=== PATIENT | male | born 1955 | race Caucasian/White ===

== ENCOUNTER 2019-06-11 10:20 | Inpatient (IN) | payer OTHER, MEDICAID ==
--- NOTE | 2019-06-11 10:55 | EDM.PDOC ---
ED HPI GENERAL MEDICAL PROBLEM - General Chief Complaint: Respiratory Problem Stated Complaint: SOB Time Seen by Provider: 06/11/19 10:25 Source of Information: Reports: Patient History Limitations: Reports: No Limitations - History of Present Illness Onset: Gradual Duration: Chronic, Getting Worse Severity: Severe Worsens with: Reports: Other (Exercise), Movement Associated Symptoms: Reports: Cough, Shortness of Breath, Weakness. 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 Treatments Lower Back Pain Score (Numeric/FACES): 2 - Related Data Allergies Allergy/AdvReac Type Severity Reaction Status Date / Time No Known Allergies Allergy Verified 06/11/19 10:35 Home Meds: Home Meds Aspirin [Aileen Chewable] 81 mg PO DAILY 03/13/13 [History] Hydrochlorothiazide 25 mg PO BID 03/13/13 [History] Metoprolol Tartrate [Lopressor] 100 mg PO BID 03/13/13 [History] Potassium Gluconate 595 mg PO DAILY 03/13/13 [History] Budesonide/Formoterol [Symbicort 80-4.5 MCG] 2 puff IH BID 06/11/19 [History] Doxazosin [Doxazosin Mesylate] 4 mg PO DAILY 06/11/19 [History] Magnesium 250 mg PO DAILY 06/11/19 [History] Ranitidine HCl [Ranitidine] 300 mg PO BEDTIME 06/11/19 [History] Past Medical History HEENT History: Reports: Impaired Vision Cardiovascular History: Reports: Hypertension Respiratory History: Reports: Sleep Apnea, SOB Musculoskeletal History: Reports: Back Pain, Chronic Endocrine/Metabolic History: Reports: Diabetes, Type II, Obesity/BMI 30+ - Past Surgical History Head Surgeries/Procedures: Reports: None HEENT Surgical History: Reports: None Cardiovascular Surgical History: Reports: None Respiratory Surgical History: Reports: None Endocrine Surgical History: Reports: None Musculoskeletal Surgical History: Reports: Other (See Below) Other Musculoskeletal Surgeries/Procedures:: right leg surgery Dermatological Surgical History: Reports: None Social & Family History - Tobacco Use Smoking Status *Q: Never Smoker Second Hand Smoke Exposure: No - Caffeine Use Caffeine Use: Reports: Coffee - Recreational Drug Use Recreational Drug Use: No ED ROS GENERAL - Review of Systems Review Of Systems: See Below Constitutional: Reports: Malaise, Weakness. Denies: Fever Respiratory: Reports: Shortness of Breath, Wheezing, Cough Cardiovascular: Denies: Chest Pain Endocrine: Reports: Fatigue GI/Abdominal: Reports: Distension. Denies: Abdominal Pain Musculoskeletal: Reports: Other (Marked swelling of both lower extremities especially at night) Skin: Denies: Cyanosis, Mottled Neurological: Denies: Confusion, Trouble Speaking ED EXAM, GENERAL - Physical Exam Exam: See Below Free Text/Narrative:: [place] obese gentleman is sitting on the edge of the exam table with oxygen in place. Legs are dangling down. He is basically a "pink puffer". Has difficulty finishing complete sentences Exam Limited By: No Limitations General Appearance: Alert, Moderate Distress Ears: Normal External Exam Nose: Normal Inspection Throat/Mouth: Normal Inspection Head: Atraumatic, Normocephalic. No: Facial Swelling Neck: Other (Neck is so obese I cannot determine jugular venous distention.) Respiratory/Chest: Chest Non-Tender, Respiratory Distress, Decreased Breath Sounds, Rales (Bilateral inspiratory rales), Wheezing, Prolonged Expiration Cardiovascular: Normal Peripheral Pulses Extremities: Other (Marked her extremity peripheral edema, pitting to the knees) EKG INTERPRETATION EKG Date: 06/11/19 Time: 11:30 Rhythm: NSR Rate (Beats/Min): 56 [place]: Normal P-Wave: Present QRS: Normal Course - Vital Signs Last Recorded V/S: Last Vital Signs Temp 36.7 C 06/11/19 10:45 Pulse 66 06/11/19 10:45 Resp 30 H 06/11/19 10:45 BP 151/71 H 06/11/19 10:45 Pulse Ox 93 L 06/11/19 10:45 - Orders/Labs/Meds Orders: Active Orders 24 hr Category Date Time Status EKG Documentation Completion [RC] ASDIRECTED Care 06/11/19 11:03 Active RT Aerosol Therapy [RC] ASDIRECTED Care 06/11/19 11:05 Active Sodium Chloride 0.9% [Saline Flush] Med 06/11/19 12:48 Active 10 ml FLUSH ASDIRECTED PRN Saline Lock Insert [OM.PC] Routine Oth 06/11/19 12:48 Ordered EKG 12 Lead [EK] Urgent Ther 06/11/19 11:03 Ordered Medication Orders Sodium Chloride (Saline Flush) 10 ml FLUSH ASDIRECTED PRN PRN Reason: Keep Vein Open Labs: Laboratory Tests 06/11/19 06/11/19 06/11/19 Range/Units 11:13 11:13 11:13 WBC 8.1 (4.5-11.0) K/uL RBC 5.71 (4.30-5.90) M/uL Hgb 16.4 H (12.0-15.0) g/dL Hct 52.9 (40.0-54.0) % MCV 93 (80-98) fL MCH 29 (27-31) pg MCHC 31 L (32-36) % Plt Count 140 L (150-400) K/uL Sodium 139 L (140-148) mmol/L Potassium 3.7 (3.6-5.2) mmol/L Chloride 99 L (100-108) mmol/L Carbon Dioxide 36 H (21-32) mmol/L Anion Gap 7.7 (5.0-14.0) mmol/L BUN 13 (7-18) mg/dL Creatinine 1.0 (0.8-1.3) mg/dL Est Cr Clr Drug Dosing 75.05 mL/min Estimated GFR (MDRD) > 60 (>60) Glucose 202 H (74-106) mg/dL Lactic Acid (0.4-2.0) mmol/L Calcium 9.0 (8.5-10.1) mg/dL Total Bilirubin 2.1 H (0.2-1.0) mg/dL AST 19 (15-37) U/L ALT 25 (12-78) U/L Alkaline Phosphatase 96 (46-116) U/L Troponin I < 0.017 (0.000-0.056) ng/mL NT-Pro-B Natriuret Pep 273 H (5-125) pg/mL Total Protein 6.7 (6.4-8.2) g/dL Albumin 3.5 (3.4-5.0) g/dL Globulin 3.2 (2.3-3.5) g/dL Albumin/Globulin Ratio 1.1 L (1.2-2.2) Urine Color (YELLOW) Urine Appearance (CLEAR) Urine pH (5.0-8.0) Ur Specific [place] (1.008-1.030) Urine Protein (NEGATIVE) mg/dL Urine Glucose (UA) (NEGATIVE) mg/dL Urine Ketones (NEGATIVE) mg/dL Urine Occult Blood (NEGATIVE) Urine Nitrite (NEGATIVE) Urine Bilirubin (NEGATIVE) Urine Urobilinogen (0.2-1.0) EU/dL Ur Leukocyte Esterase (NEGATIVE) Urine RBC (0-5) Urine WBC (0-5) Ur Epithelial Cells Amorphous Sediment Urine Bacteria Urine Mucus 06/11/19 06/11/19 Range/Units 11:13 11:43 WBC (4.5-11.0) K/uL RBC (4.30-5.90) M/uL Hgb (12.0-15.0) g/dL Hct (40.0-54.0) % MCV (80-98) fL MCH (27-31) pg MCHC (32-36) % Plt Count (150-400) K/uL Sodium (140-148) mmol/L Potassium (3.6-5.2) mmol/L Chloride (100-108) mmol/L Carbon Dioxide (21-32) mmol/L Anion Gap (5.0-14.0) mmol/L BUN (7-18) mg/dL Creatinine (0.8-1.3) mg/dL Est Cr Clr Drug Dosing mL/min Estimated GFR (MDRD) (>60) Glucose (74-106) mg/dL Lactic Acid 1.4 (0.4-2.0) mmol/L Calcium (8.5-10.1) mg/dL Total Bilirubin (0.2-1.0) mg/dL AST (15-37) U/L ALT (12-78) U/L Alkaline Phosphatase (46-116) U/L Troponin I (0.000-0.056) ng/mL NT-Pro-B Natriuret Pep (5-125) pg/mL Total Protein (6.4-8.2) g/dL Albumin (3.4-5.0) g/dL Globulin (2.3-3.5) g/dL Albumin/Globulin Ratio (1.2-2.2) Urine Color Yellow (YELLOW) Urine Appearance Clear (CLEAR) Urine pH 7.0 (5.0-8.0) Ur Specific [place] 1.020 (1.008-1.030) Urine Protein Negative (NEGATIVE) mg/dL Urine Glucose (UA) Negative (NEGATIVE) mg/dL Urine Ketones Negative (NEGATIVE) mg/dL Urine Occult Blood Negative (NEGATIVE) Urine Nitrite Negative (NEGATIVE) Urine Bilirubin Negative (NEGATIVE) Urine Urobilinogen 2.0 H (0.2-1.0) EU/dL Ur Leukocyte Esterase Negative (NEGATIVE) Urine RBC 0-5 (0-5) Urine WBC Not seen (0-5) Ur Epithelial Cells Not seen Amorphous Sediment Moderate Urine Bacteria Not seen Urine Mucus Not seen Meds: Medications Generic Name Dose Route Start Last Admin Trade Name Freq PRN Reason Stop Dose Admin Sodium Chloride 10 ml 06/11/19 12:48 Saline Flush FLUSH ASDIRECTED PRN Keep Vein Open Discontinued Medications Generic Name Dose Route Start Last Admin Trade Name Freq PRN Reason Stop Dose Admin Albuterol/Ipratropium 3 ml 06/11/19 11:05 06/11/19 11:09 Duoneb 3.0-0.5 Mg/3 Ml NEB 06/11/19 11:06 3 ml ONETIME ONE Administration Furosemide 40 mg 06/11/19 12:49 Lasix IVPUSH 06/11/19 12:50 ONETIME ONE Departure - Departure Time of Disposition: 13:02 (Suzie the patient with hospitalist and the patient will be admitted for treatment of congestive heart failure) Disposition: Admitted As Inpatient 68 Clinical Impression: Congestive heart failure - Discharge Information Instructions: Heart Failure, [id number] Referrals: Richie Quintana MD [Primary Care Provider] - Forms: ED Department Discharge Sepsis Event Note - Evaluation Sepsis Screening Result: No Definite Risk - Focused Exam Vital Signs: Vital Signs Temp Pulse Resp BP Pulse Ox 06/11/19 10:45 36.7 C 66 30 H 151/71 H 93 L 06/11/19 10:41 93 L 06/11/19 10:39 36.7 C 66 30 H 151/71 H 80 L Date Exam was Performed: 06/11/19 Time Exam was Performed: 13:02 - My Orders Last 24 Hours: My Active Orders 06/11/19 11:03 EKG Documentation Completion [RC] ASDIRECTED EKG 12 Lead [EK] Urgent 06/11/19 11:05 RT Aerosol Therapy [RC] ASDIRECTED 06/11/19 12:48 Sodium Chloride 0.9% [Saline Flush] 10 ml FLUSH ASDIRECTED PRN Saline Lock Insert [OM.PC] Routine - Assessment/Plan Last 24 Hours: My Active Orders 06/11/19 11:03 EKG Documentation Completion [RC] ASDIRECTED EKG 12 Lead [EK] Urgent 06/11/19 11:05 RT Aerosol Therapy [RC] ASDIRECTED 06/11/19 12:48 Sodium Chloride 0.9% [Saline Flush] 10 ml FLUSH ASDIRECTED PRN Saline Lock Insert [OM.PC] Routine
[2019-06-11] MEDS ORDERED: Albuterol/Ipratropium 3.0-0.5 MG/3 ML Neb Soln NEB ONE (11:05)
--- NOTE | 2019-06-11 12:14 | CRLCR ---
Indication: Shortness of breath Technique: Chest 2 views Comparison: None Findings: Cardiovascular and mediastinum: Borderline cardiomegaly. Central pulmonary vasculature is congested. Lungs and pleural spaces: Possible perihilar infiltrates. This may be exaggerated by patient rotation. Remainder of the lungs and pleural spaces clear. No pneumothorax. Bones and soft tissues: No significant findings. Impression: Suggestion of congestive heart failure with perihilar edema. Dictated by Anthony Uriarte MD @ 06/11/2019 12:13:16 PM Dictated by: Anthony Uriarte MD @ 06/11/2019 12:13:37 (Electronically Signed)
[2019-06-11] MEDS ORDERED: Sodium Chloride 0.9% 10 ML Syringe FLUSH PRN ×2 (12:48→15:19)
[2019-06-11] MEDS ORDERED: Furosemide 40 MG/4 ML VIAL IVPUSH ONE ×2 (12:49→20:00)
--- NOTE | 2019-06-11 13:08 | PCM.HP.2 ---
H&P History of Present Illness - General Date of Service: 06/11/19 Admit Problem/Dx: Admission Diagnosis/Problem Admission Diagnosis/Problem CHF, Congestive heart failure Source of Information: Patient, Provider, RN Notes Reviewed History Limitations: Reports: No Limitations - History of Present Illness Initial Comments - Free Text/Narative: Mr. Buck is a 63-year-old gentleman who was admitted through the emergency department with weakness, shortness of breath, and hypoxia, secondary to congestive heart failure. He does have a known history of underlying COPD but denies recent symptoms of exacerbation. He denies any previous history of congestive heart failure. He reports that his shortness of breath and peripheral edema have been developing slowly over the past several months but have become significantly worse in the past few weeks. He has been short of breath with minimal exertion, denies PND and orthopnea. Denies recent symptoms of chest pain or pressure. Lower Back Pain Score (Numeric/FACES): 2 - Related Data Allergies/Adverse Reactions: Allergies Allergy/AdvReac Type Severity Reaction Status Date / Time No Known Allergies Allergy Verified 06/11/19 10:35 Home Medications: Home Meds Aspirin [Aileen Chewable] 81 mg PO DAILY 03/13/13 [History] Hydrochlorothiazide 25 mg PO BID 03/13/13 [History] Metoprolol Tartrate [Lopressor] 100 mg PO BID 03/13/13 [History] Potassium Gluconate 595 mg PO DAILY 03/13/13 [History] Budesonide/Formoterol [Symbicort 80-4.5 MCG] 2 puff IH BID 06/11/19 [History] Doxazosin [Doxazosin Mesylate] 4 mg PO DAILY 06/11/19 [History] Magnesium 250 mg PO DAILY 06/11/19 [History] Ranitidine HCl [Ranitidine] 300 mg PO BEDTIME 06/11/19 [History] Past Medical History HEENT History: Reports: Impaired Vision Cardiovascular History: Reports: Hypertension Respiratory History: Reports: Sleep Apnea, SOB Musculoskeletal History: Reports: Back Pain, Chronic Endocrine/Metabolic History: Reports: Diabetes, Type II, Obesity/BMI 30+ - Past Surgical History Head Surgeries/Procedures: Reports: None HEENT Surgical History: Reports: None Cardiovascular Surgical History: Reports: None Respiratory Surgical History: Reports: None Endocrine Surgical History: Reports: None Musculoskeletal Surgical History: Reports: Other (See Below) Other Musculoskeletal Surgeries/Procedures:: right leg surgery Dermatological Surgical History: Reports: None Social & Family History - Tobacco Use Smoking Status *Q: Never Smoker Second Hand Smoke Exposure: No - Caffeine Use Caffeine Use: Reports: Coffee - Recreational Drug Use Recreational Drug Use: No H&P Review of Systems - Review of Systems: Review Of Systems: See Below General: Reports: Malaise, Weakness. Denies: Fever, Chills HEENT: Reports: No Symptoms Pulmonary: Reports: Shortness of Breath. Denies: Wheezing, Pleuritic Chest Pain , Cough, Sputum, Hemoptysis Cardiovascular: Reports: Dyspnea on Exertion, Edema. Denies: Chest Pain, Palpitations, Orthopnea, PND, Lightheadedness Gastrointestinal: Reports: No Symptoms Genitourinary: Reports: No Symptoms Musculoskeletal: Reports: No Symptoms Skin: Reports: No Symptoms Psychiatric: Reports: No Symptoms Neurological: Reports: No Symptoms Hematologic/Lymphatic: Reports: No Symptoms Immunologic: Reports: No Symptoms Exam - Exam Exam: See Below - Vital Signs Vital Signs: Last Vital Signs Temp 98.1 F 06/11/19 10:45 Pulse 66 06/11/19 10:45 Resp 30 H 06/11/19 10:45 BP 151/71 H 06/11/19 10:45 Pulse Ox 93 L 06/11/19 10:45 Weight: 338 lb - Exam Quality Assessment: Supplemental Oxygen, DVT Prophylaxis General: Alert, Oriented, Cooperative, Mild Distress HEENT: Conjunctiva Clear, Hearing Intact, Mucosa Moist & [place], Normal Nasal Septum, Posterior Pharynx Clear, Pupils Equal Neck: Supple, Trachea Midline, +2 Carotid Pulse wo Bruit Lungs: Decreased Breath Sounds. No: Rales, Rhonchi, Rub, Wheezing Cardiovascular: Regular Rate, Regular Rhythm, Normal S1, Normal S2, Systolic Murmur. No: Diastolic Murmur GI/Abdominal Exam: Soft, Non-Tender, No Organomegaly, No Distention Back Exam: Normal Inspection, Full Range of Motion Extremities: Non-Tender, Pedal Edema Skin: Warm, Dry, Intact Neurological: Cranial Nerves Intact, Strength Equal Bilateral, Normal Speech, Normal Tone, Sensation Intact. No: Focal Deficit Neuro Extensive - Mental Status: Alert, Oriented x3, Normal Mood/Affect, Normal Cognition, Memory Intact - Patient Data Lab Results Last 24 hrs: Laboratory Results - last 24 hr 06/11/19 06/11/19 06/11/19 Range/Units 11:13 11:13 11:13 WBC 8.1 (4.5-11.0) K/uL RBC 5.71 (4.30-5.90) M/uL Hgb 16.4 H (12.0-15.0) g/dL Hct 52.9 (40.0-54.0) % MCV 93 (80-98) fL MCH 29 (27-31) pg MCHC 31 L (32-36) % Plt Count 140 L (150-400) K/uL Sodium 139 L (140-148) mmol/L Potassium 3.7 (3.6-5.2) mmol/L Chloride 99 L (100-108) mmol/L Carbon Dioxide 36 H (21-32) mmol/L Anion Gap 7.7 (5.0-14.0) mmol/L BUN 13 (7-18) mg/dL Creatinine 1.0 (0.8-1.3) mg/dL Est Cr Clr Drug Dosing 75.05 mL/min Estimated GFR (MDRD) > 60 (>60) Glucose 202 H (74-106) mg/dL Lactic Acid (0.4-2.0) mmol/L Calcium 9.0 (8.5-10.1) mg/dL Total Bilirubin 2.1 H (0.2-1.0) mg/dL AST 19 (15-37) U/L ALT 25 (12-78) U/L Alkaline Phosphatase 96 (46-116) U/L Troponin I < 0.017 (0.000-0.056) ng/mL NT-Pro-B Natriuret Pep 273 H (5-125) pg/mL Total Protein 6.7 (6.4-8.2) g/dL Albumin 3.5 (3.4-5.0) g/dL Globulin 3.2 (2.3-3.5) g/dL Albumin/Globulin Ratio 1.1 L (1.2-2.2) Urine Color (YELLOW) Urine Appearance (CLEAR) Urine pH (5.0-8.0) Ur Specific [place] (1.008-1.030) Urine Protein (NEGATIVE) mg/dL Urine Glucose (UA) (NEGATIVE) mg/dL Urine Ketones (NEGATIVE) mg/dL Urine Occult Blood (NEGATIVE) Urine Nitrite (NEGATIVE) Urine Bilirubin (NEGATIVE) Urine Urobilinogen (0.2-1.0) EU/dL Ur Leukocyte Esterase (NEGATIVE) Urine RBC (0-5) Urine WBC (0-5) Ur Epithelial Cells Amorphous Sediment Urine Bacteria Urine Mucus 06/11/19 06/11/19 Range/Units 11:13 11:43 WBC (4.5-11.0) K/uL RBC (4.30-5.90) M/uL Hgb (12.0-15.0) g/dL Hct (40.0-54.0) % MCV (80-98) fL MCH (27-31) pg MCHC (32-36) % Plt Count (150-400) K/uL Sodium (140-148) mmol/L Potassium (3.6-5.2) mmol/L Chloride (100-108) mmol/L Carbon Dioxide (21-32) mmol/L Anion Gap (5.0-14.0) mmol/L BUN (7-18) mg/dL Creatinine (0.8-1.3) mg/dL Est Cr Clr Drug Dosing mL/min Estimated GFR (MDRD) (>60) Glucose (74-106) mg/dL Lactic Acid 1.4 (0.4-2.0) mmol/L Calcium (8.5-10.1) mg/dL Total Bilirubin (0.2-1.0) mg/dL AST (15-37) U/L ALT (12-78) U/L Alkaline Phosphatase (46-116) U/L Troponin I (0.000-0.056) ng/mL NT-Pro-B Natriuret Pep (5-125) pg/mL Total Protein (6.4-8.2) g/dL Albumin (3.4-5.0) g/dL Globulin (2.3-3.5) g/dL Albumin/Globulin Ratio (1.2-2.2) Urine Color Yellow (YELLOW) Urine Appearance Clear (CLEAR) Urine pH 7.0 (5.0-8.0) Ur Specific [place] 1.020 (1.008-1.030) Urine Protein Negative (NEGATIVE) mg/dL Urine Glucose (UA) Negative (NEGATIVE) mg/dL Urine Ketones Negative (NEGATIVE) mg/dL Urine Occult Blood Negative (NEGATIVE) Urine Nitrite Negative (NEGATIVE) Urine Bilirubin Negative (NEGATIVE) Urine Urobilinogen 2.0 H (0.2-1.0) EU/dL Ur Leukocyte Esterase Negative (NEGATIVE) Urine RBC 0-5 (0-5) Urine WBC Not seen (0-5) Ur Epithelial Cells Not seen Amorphous Sediment Moderate Urine Bacteria Not seen Urine Mucus Not seen Result Diagrams: 06/11/19 11:13 06/11/19 11:13 Sepsis Event Note - Evaluation Sepsis Screening Result: No Definite Risk - Focused Exam Vital Signs: Vital Signs Temp Pulse Resp BP Pulse Ox 06/11/19 10:45 98.1 F 66 30 H 151/71 H 93 L 06/11/19 10:41 93 L 06/11/19 10:39 98.1 F 66 30 H 151/71 H 80 L Date Exam was Performed: 06/11/19 Time Exam was Performed: 13:53 *Q Meaningful Use (ADM) - VTE Risk Assess *Q Each Risk Factor Represents 1 Point: Swollen Legs, Current, Obesity ( BMI > 25 kg/m2), Congestive heart failure (CHF), Abnormal Pulmonary Function (COPD) Total Score 1 Point Risk Factors: 4 Each Risk Factor Represents 2 Points: Age 60 - 74 Years Total Score 2 Point Risk Factors: 2 Each Risk Factor Represents 3 Points: None Total Score 3 Point Risk Factors: 0 Each Risk Factor Represents 5 Points: None Total Score 5 Point Risk Factors: 0 Venous Thromboembolism Risk Factor Score *Q: 6 Problem List Initiated/Reviewed/Updated: Yes Orders Last 24hrs: Active Orders 24 hr Category Date Time Status Patient Status Manage Transfer [TRANSFER] Routine ADT 06/11/19 13:03 Ordered EKG Documentation Completion [RC] ASDIRECTED Care 06/11/19 11:03 Active RT Aerosol Therapy [RC] ASDIRECTED Care 06/11/19 11:05 Active Sodium Chloride 0.9% [Saline Flush] Med 06/11/19 12:48 Active 10 ml FLUSH ASDIRECTED PRN Saline Lock Insert [OM.PC] Routine Oth 06/11/19 12:48 Ordered Resuscitation Status Routine Resus Stat 06/11/19 13:05 Ordered EKG 12 Lead [EK] Urgent Ther 06/11/19 11:03 Ordered Medication Orders Sodium Chloride (Saline Flush) 10 ml FLUSH ASDIRECTED PRN PRN Reason: Keep Vein Open Assessment/Plan Comment:: ASSESSMENT AND PLAN CONGESTIVE HEART FAILURE-with fluid overload. Significant shortness of breath with hypoxia and peripheral edema. Evidence of congestive heart failure noted on chest x-ray. -2 g sodium diet -Furosemide 40 mg given in emergency department -Furosemide 40 mg IV later this evening -Echocardiogram to assess left ventricular systolic and diastolic function as well as valvular status -Reassess in a.m. COPD-no evidence of acute exacerbation or underlying infection -Continue outpatient medical therapy -Duo nebs as needed TYPE 2 DIABETES MELLITUS-controlled with diet -4 times daily glucometers -Low-dose sliding scale NovoLog MAINTENANCE ISSUES -DVT prophylaxis; Lovenox 40 mg subcu daily -GI prophylaxis; continue outpatient H2 mallory therapy -Maciel catheter; not indicated -Nutrition; 2 g sodium diet -Nicotine dependence; not indicated CODE STATUS-FULL CODE ADMISSION STATUS-patient will be admitted to inpatient status, expect at least a 2 night hospital stay for evaluation and management of problems as outlined above. At the time of this admission I do not reasonably expected evaluation and management of this problem will require more than a 96 hour hospital stay. DISPOSITION-anticipate discharge to home after the hospital stay. PRIMARY CARE PROVIDER-Dr. Quintana - Mortality Measure Prognosis:: Good
[2019-06-11] MEDS ORDERED: Glucose Gel 15 GM in 37.5 GM Tube PO PRN (15:19)
[2019-06-11] MEDS ORDERED: Polyethylene Glycol 3350 Powder 17 GM Packet PO PRN (15:19)
[2019-06-11] MEDS ORDERED: Ondansetron 4 MG/2 ML SDV IV PRN (15:19)
[2019-06-11] MEDS ORDERED: 50% Dextrose in Water 50 ML Syringe IV PRN (15:19)
[2019-06-11] MEDS: Insulin Lispro 100 Unit/ML 3 ML KwikPen SUBCUT SCH ×2 (17:13→21:30)
[2019-06-11] MEDS: Enoxaparin 40 MG/0.4 ML Syringe SUBCUT SCH (17:13)
[2019-06-11] MEDS: Metoprolol Tartrate 50 MG Tab PO SCH (21:29)
[2019-06-11] MEDS: Famotidine 20 MG Tab PO SCH (21:29)
[2019-06-11] MEDS: Fluticasone-Salmeterol 113-14 MCG Powder Inhalant INH SCH (21:29)
[2019-06-12] MEDS: Acetaminophen 325 MG Tab PO PRN ×3 (00:07→20:11)
[2019-06-12] MEDS: Fluticasone-Salmeterol 113-14 MCG Powder Inhalant INH SCH ×2 (07:45→21:19)
[2019-06-12] MEDS: Insulin Lispro 100 Unit/ML 3 ML KwikPen SUBCUT SCH ×4 (07:46→21:14)
[2019-06-12] MEDS ORDERED: Furosemide 40 MG/4 ML VIAL IVPUSH ONE ×2 (08:50→19:00)
[2019-06-12] MEDS ORDERED: Potassium Chloride 20 MEQ Tab.ER PO ONE ×2 (09:00→17:00)
[2019-06-12] MEDS: Doxazosin 4 MG Tab PO SCH (09:57)
[2019-06-12] MEDS: Potassium Chloride 10 MEQ Cap.ER PO SCH (09:57)
[2019-06-12] MEDS: Metoprolol Tartrate 50 MG Tab PO SCH ×2 (09:58→21:21)
[2019-06-12] MEDS: Magnesium Oxide 400 MG Tab PO SCH (09:58)
[2019-06-12] MEDS: Aspirin 81 MG Tab.Chew PO SCH (09:58)
--- NOTE | 2019-06-12 13:39 | PCM.PN ---
- General Info Date of Service: 06/12/19 Subjective Update: Mr. Buck has improved since admission yesterday with less shortness of breath and improvement in peripheral edema. Continues to require supplemental oxygen because of hypoxia and decreased oxygen saturation. Functional Status: Reports: Tolerating Diet, Ambulating, Urinating - Review of Systems General: Reports: Weakness. Denies: Fever, Chills Pulmonary: Reports: Shortness of Breath. Denies: Pleuritic Chest Pain, Cough, Sputum, Hemoptysis, Wheezing Cardiovascular: Reports: Dyspnea on Exertion, Edema. Denies: Chest Pain, Palpitations, Orthopnea, PND, Lightheadedness Gastrointestinal: Reports: No Symptoms - Patient Data Vitals - Most Recent: Last Vital Signs Temp 97 F 06/12/19 11:42 Pulse 51 L 06/12/19 11:42 Resp 16 06/12/19 11:42 BP 116/73 06/12/19 11:42 Pulse Ox 92 L 06/12/19 11:42 Weight - Most Recent: 329 lb 9.6 oz I&O - Last 24 Hours: Intake & Output 06/11/19 06/12/19 06/12/19 22:59 06:59 14:59 Intake Total 300 Output Total 1375 1000 Balance -1375 300 -1000 Lab Results Last 24 Hours: Laboratory Results - last 24 hr 06/12/19 06/12/19 Range/Units 05:30 05:30 WBC 7.7 (4.5-11.0) K/uL RBC 5.38 (4.30-5.90) M/uL Hgb 15.6 H (12.0-15.0) g/dL Hct 50.5 (40.0-54.0) % MCV 94 (80-98) fL MCH 29 (27-31) pg MCHC 31 L (32-36) % Plt Count 139 L (150-400) K/uL Neut % (Auto) 74 H (36-66) % Lymph % (Auto) 12 L (24-44) % Power % (Auto) 10 H (2-6) % Eos % (Auto) 3 (2-4) % Baso % (Auto) 0 (0-1) % Sodium 142 (140-148) mmol/L Potassium 3.5 L (3.6-5.2) mmol/L Chloride 101 (100-108) mmol/L Carbon Dioxide 40 H (21-32) mmol/L Anion Gap 4.5 L (5.0-14.0) mmol/L BUN 13 (7-18) mg/dL Creatinine 1.0 (0.8-1.3) mg/dL Est Cr Clr Drug Dosing 75.05 mL/min Estimated GFR (MDRD) > 60 (>60) Glucose 119 H (74-106) mg/dL Calcium 8.4 L (8.5-10.1) mg/dL Magnesium 2.0 (1.8-2.4) mg/dL Med Orders - Current: Current Medications Acetaminophen (Tylenol) 650 mg PO Q4H PRN PRN Reason: Pain (Mild 1-3)/fever Last Admin: 06/12/19 00:07 Dose: 650 mg Aspirin (Aspirin) 81 mg PO DAILY [facility] Last Admin: 06/12/19 09:58 Dose: 81 mg Dextrose (Glutose 15) 15 gm PO ONETIME PRN PRN Reason: Hypoglycemia Dextrose/Water (Dextrose 50% In Water) 50 ml IV ONETIME PRN PRN Reason: Hypoglycemia Doxazosin Mesylate (Cardura) 4 mg PO DAILY [facility] Last Admin: 06/12/19 09:57 Dose: 4 mg Enoxaparin Sodium (Lovenox) 40 mg SUBCUT Q24H [facility] Last Admin: 06/11/19 17:13 Dose: 40 mg Famotidine (Pepcid) 40 mg PO BEDTIME [facility] Last Admin: 06/11/19 21:29 Dose: 40 mg Furosemide (Lasix) 40 mg IVPUSH NOW ONE Stop: 06/12/19 19:01 Insulin Human Lispro (Humalog) 0 unit SUBCUT QIDACANDBED [facility]; Protocol Last Admin: 06/12/19 12:22 Dose: 1 unit Magnesium Oxide (Magnesium Oxide) 400 mg PO DAILY [facility] Last Admin: 06/12/19 09:58 Dose: 400 mg Metoprolol Tartrate (Lopressor) 100 mg PO BID [facility] Last Admin: 06/12/19 09:58 Dose: 100 mg Ondansetron HCl (Zofran) 4 mg IV Q4H PRN PRN Reason: Nausea/Vomiting Polyethylene Glycol (Miralax) 17 gm PO DAILY PRN PRN Reason: Constipation Potassium Chloride (Potassium Chloride) 10 meq PO DAILY [facility] Last Admin: 06/12/19 09:57 Dose: 10 meq Potassium Chloride (Klor-Con M20) 40 meq PO ONETIME ONE Stop: 06/12/19 17:01 Fluticasone/Salmeterol (Fluticasone-Salmeterol 113-14 Mcg Powder Inh) 1 puff INH BIDRT [place] Last Admin: 06/12/19 07:45 Dose: 1 puff Sodium Chloride (Saline Flush) 10 ml FLUSH ASDIRECTED PRN PRN Reason: Keep Vein Open Discontinued Medications Albuterol/Ipratropium (Duoneb 3.0-0.5 Mg/3 Ml) 3 ml NEB ONETIME ONE Stop: 06/11/19 11:06 Last Admin: 06/11/19 11:09 Dose: 3 ml Furosemide (Lasix) 40 mg IVPUSH ONETIME ONE Stop: 06/11/19 12:50 Last Admin: 06/11/19 13:19 Dose: 40 mg Furosemide (Lasix) 40 mg IVPUSH NOW ONE Stop: 06/11/19 20:01 Last Admin: 06/11/19 19:44 Dose: 40 mg Furosemide (Lasix) 40 mg IVPUSH NOW ONE Stop: 06/12/19 08:51 Last Admin: 06/12/19 10:01 Dose: 40 mg Potassium Chloride (Klor-Con M20) 40 meq PO ONETIME ONE Stop: 06/12/19 09:01 Last Admin: 06/12/19 09:56 Dose: 40 meq Sodium Chloride (Saline Flush) 10 ml FLUSH ASDIRECTED PRN PRN Reason: Keep Vein Open Last Admin: 06/11/19 13:19 Dose: 10 ml - Exam Quality Assessment: Supplemental Oxygen, DVT Prophylaxis General: Alert, Oriented, Mild Distress Lungs: Decreased Breath Sounds. No: Rales, Rhonchi, Wheezing Cardiovascular: Regular Rate, Regular Rhythm, No Murmurs GI/Abdominal Exam: Soft, Non-Tender, No Organomegaly, No Distention Extremities: Non-Tender, Pedal Edema Sepsis Event Note - Evaluation Sepsis Screening Result: No Definite Risk - Focused Exam Vital Signs: Vital Signs Temp Pulse Pulse Resp BP BP Pulse Ox 06/12/19 11:42 97 F 51 L 16 116/73 92 L 06/12/19 09:58 58 L 127/75 06/12/19 09:57 127/75 06/12/19 09:00 90 L 06/12/19 07:57 58 L 20 127/75 92 L 06/12/19 03:00 97.6 F 58 L 20 121/71 91 L Date Exam was Performed: 06/12/19 Time Exam was Performed: 13:36 - Problem List Review Problem List Initiated/Reviewed/Updated: Yes - My Orders Last 24 Hours: My Active Orders 06/11/19 13:05 Resuscitation Status Routine 06/11/19 15:19 Patient Status [ADT] Routine Ambulate [RC] QID Blood Glucose Check, Bedside [RC] QIDACANDBED Cardiac Monitoring [RC] .As Directed Diabetes Education [RC] Click to Edit Height and Weight [RC] 0500 Intake and Output [RC] QSHIFT Notify Provider Vital Signs [RC] ASDIRECTED Notify Provider [RC] PRN Oxygen Therapy [RC] PRN Pulse Oximetry [RC] CONTINUOUS Up With Assistance [RC] ASDIRECTED Up to Chair [RC] QID VTE/DVT Education [RC] Per Unit Routine Vital Signs [RC] Q4H Echo Comp wo Cont [US] Stat Acetaminophen [Tylenol] 650 mg PO Q4H PRN Dextrose 50% in Water 50 ml IV ONETIME PRN Dextrose [Glutose 15] 15 gm PO ONETIME PRN Ondansetron [Zofran] 4 mg IV Q4H PRN Sodium Chloride 0.9% [Saline Flush] 10 ml FLUSH ASDIRECTED PRN polyethylene glycoL 3350 [MiraLAX] 17 gm PO DAILY PRN Saline Lock Insert [OM.PC] Routine 06/11/19 16:00 Enoxaparin [Lovenox] 40 mg SUBCUT Q24H 06/11/19 17:00 Insulin Lispro [HumaLOG] See Protocol SUBCUT QIDACANDBED 06/11/19 21:00 Famotidine [Pepcid] 40 mg PO BEDTIME Fluticasone/Salmeterol [Fluticasone-Salmeterol 113-14 MCG Powder Inh] 1 puff INH BIDRT Metoprolol Tartrate [Lopressor] 100 mg PO BID 06/12/19 09:00 Aspirin 81 mg PO DAILY Doxazosin [Cardura] 4 mg PO DAILY Magnesium Oxide 400 mg PO DAILY Potassium Chloride 10 meq PO DAILY 06/12/19 16:30 GLUCOSE POC LAB TO COLLECT [POC] QIDACANDBED 06/12/19 17:00 Potassium Chloride [Klor-Con M20] 40 meq PO ONETIME ONE 06/12/19 19:00 Furosemide [Lasix] 40 mg IVPUSH NOW ONE 06/12/19 21:00 GLUCOSE POC LAB TO COLLECT [POC] QIDACANDBED 06/13/19 05:00 BASIC METABOLIC PANEL,BMP [CHEM] Timed 06/13/19 07:30 GLUCOSE POC LAB TO COLLECT [POC] QIDACANDBED 06/13/19 11:30 GLUCOSE POC LAB TO COLLECT [POC] QIDACANDBED 06/13/19 16:30 GLUCOSE POC LAB TO COLLECT [POC] QIDACANDBED 06/13/19 21:00 GLUCOSE POC LAB TO COLLECT [POC] QIDACANDBED 06/14/19 07:30 GLUCOSE POC LAB TO COLLECT [POC] QIDACANDBED 06/14/19 11:30 GLUCOSE POC LAB TO COLLECT [POC] QIDACANDBED 06/14/19 16:30 GLUCOSE POC LAB TO COLLECT [POC] QIDACANDBED 06/14/19 21:00 GLUCOSE POC LAB TO COLLECT [POC] QIDACANDBED 06/15/19 07:30 GLUCOSE POC LAB TO COLLECT [POC] QIDACANDBED 06/15/19 11:30 GLUCOSE POC LAB TO COLLECT [POC] QIDACANDBED 06/15/19 16:30 GLUCOSE POC LAB TO COLLECT [POC] QIDACANDBED 06/15/19 21:00 GLUCOSE POC LAB TO COLLECT [POC] QIDACANDBED 06/16/19 07:30 GLUCOSE POC LAB TO COLLECT [POC] QIDACANDBED 06/16/19 11:30 GLUCOSE POC LAB TO COLLECT [POC] QIDACANDBED - Plan Plan:: ASSESSMENT AND PLAN CONGESTIVE HEART FAILURE-with fluid overload. Significant shortness of breath with hypoxia and peripheral edema. Evidence of congestive heart failure noted on chest x-ray. Good diuresis thus far since admission with less shortness of breath and edema -2 g sodium diet -Furosemide 40 mg IV twice today, reassess in a.m. -Echocardiogram report pending COPD-no evidence of acute exacerbation or underlying infection -Continue outpatient medical therapy -Duo nebs as needed TYPE 2 DIABETES MELLITUS-controlled with diet -4 times daily glucometers -Low-dose sliding scale NovoLog MAINTENANCE ISSUES -DVT prophylaxis; Lovenox 40 mg subcu daily -GI prophylaxis; continue outpatient H2 mallory therapy -Maciel catheter; not indicated -Nutrition; 2 g sodium diet -Nicotine dependence; not indicated CODE STATUS-FULL CODE ADMISSION STATUS-patient will be admitted to inpatient status, expect at least a 2 night hospital stay for evaluation and management of problems as outlined above. At the time of this admission I do not reasonably expected evaluation and management of this problem will require more than a 96 hour hospital stay. DISPOSITION-anticipate discharge to home after the hospital stay. PRIMARY CARE PROVIDER-Dr. Quintana
[2019-06-12] MEDS: Enoxaparin 40 MG/0.4 ML Syringe SUBCUT SCH (16:37)
[2019-06-12] MEDS: Famotidine 20 MG Tab PO SCH (21:21)
[2019-06-13] MEDS: Acetaminophen 325 MG Tab PO PRN ×3 (05:16→21:05)
[2019-06-13] MEDS: Insulin Lispro 100 Unit/ML 3 ML KwikPen SUBCUT SCH ×4 (07:47→21:16)
[2019-06-13] MEDS: Potassium Chloride 10 MEQ Cap.ER PO SCH (08:20)
[2019-06-13] MEDS: Metoprolol Tartrate 50 MG Tab PO SCH ×2 (08:20→21:18)
[2019-06-13] MEDS: Magnesium Oxide 400 MG Tab PO SCH (08:20)
[2019-06-13] MEDS: Aspirin 81 MG Tab.Chew PO SCH (08:20)
[2019-06-13] MEDS: Doxazosin 4 MG Tab PO SCH (08:20)
[2019-06-13] MEDS: Fluticasone-Salmeterol 113-14 MCG Powder Inhalant INH SCH ×2 (11:28→21:17)
[2019-06-13] MEDS ORDERED: Furosemide 40 MG/4 ML VIAL IVPUSH ONE (14:00)
--- NOTE | 2019-06-13 14:09 | PCM.PN ---
- General Info Date of Service: 06/13/19 Subjective Update: Mr. Buck has noted further improvement in symptoms since yesterday, less shortness of breath with activity and decrease in peripheral edema. He remains hypoxic and continues to require up to 3 L/min via nasal cannula to maintain adequate oxygenation. Likely that some of this is chronic related to his underlying COPD, obesity related hypoventilation, and congestive heart failure. Functional Status: Reports: Pain Controlled, Tolerating Diet, Ambulating, Urinating - Review of Systems General: Reports: Weakness. Denies: Fever, Chills Pulmonary: Reports: Shortness of Breath. Denies: Pleuritic Chest Pain, Cough, Sputum, Hemoptysis, Wheezing Cardiovascular: Reports: Dyspnea on Exertion, Edema. Denies: Chest Pain, Palpitations, Orthopnea, PND, Lightheadedness Gastrointestinal: Reports: No Symptoms - Patient Data Vitals - Most Recent: Last Vital Signs Temp 97.6 F 06/13/19 10:44 Pulse 53 L 06/13/19 10:44 Resp 16 06/13/19 10:44 BP 118/72 06/13/19 10:44 Pulse Ox 94 L 06/13/19 10:44 Weight - Most Recent: 325 lb 12.8 oz I&O - Last 24 Hours: Intake & Output 06/12/19 06/13/19 06/13/19 22:59 06:59 14:59 Intake Total 1040 1000 Balance 1040 1000 Lab Results Last 24 Hours: Laboratory Results - last 24 hr 06/13/19 Range/Units 05:05 Sodium 142 (140-148) mmol/L Potassium 4.2 (3.6-5.2) mmol/L Chloride 102 (100-108) mmol/L Carbon Dioxide 39 H (21-32) mmol/L Anion Gap 5.2 (5.0-14.0) mmol/L BUN 17 (7-18) mg/dL Creatinine 1.0 (0.8-1.3) mg/dL Est Cr Clr Drug Dosing 75.33 mL/min Estimated GFR (MDRD) > 60 (>60) Glucose 131 H (74-106) mg/dL Calcium 8.8 (8.5-10.1) mg/dL Med Orders - Current: Current Medications Acetaminophen (Tylenol) 650 mg PO Q4H PRN PRN Reason: Pain (Mild 1-3)/fever Last Admin: 06/13/19 10:01 Dose: 650 mg Aspirin (Aspirin) 81 mg PO DAILY [facility] Last Admin: 06/13/19 08:20 Dose: 81 mg Dextrose (Glutose 15) 15 gm PO ONETIME PRN PRN Reason: Hypoglycemia Dextrose/Water (Dextrose 50% In Water) 50 ml IV ONETIME PRN PRN Reason: Hypoglycemia Doxazosin Mesylate (Cardura) 4 mg PO DAILY [facility] Last Admin: 06/13/19 08:20 Dose: 4 mg Enoxaparin Sodium (Lovenox) 40 mg SUBCUT Q24H [facility] Last Admin: 06/12/19 16:37 Dose: 40 mg Famotidine (Pepcid) 40 mg PO BEDTIME [facility] Last Admin: 06/12/19 21:21 Dose: 40 mg Furosemide (Lasix) 40 mg IVPUSH Q12H [facility] Insulin Human Lispro (Humalog) 0 unit SUBCUT QIDACANDBED [facility]; Protocol Last Admin: 06/13/19 12:15 Dose: 1 unit Magnesium Oxide (Magnesium Oxide) 400 mg PO DAILY [facility] Last Admin: 06/13/19 08:20 Dose: 400 mg Metoprolol Tartrate (Lopressor) 100 mg PO BID [facility] Last Admin: 06/13/19 08:20 Dose: 100 mg Ondansetron HCl (Zofran) 4 mg IV Q4H PRN PRN Reason: Nausea/Vomiting Polyethylene Glycol (Miralax) 17 gm PO DAILY PRN PRN Reason: Constipation Potassium Chloride (Potassium Chloride) 10 meq PO DAILY [facility] Last Admin: 06/13/19 08:20 Dose: 10 meq Fluticasone/Salmeterol (Fluticasone-Salmeterol 113-14 Mcg Powder Inh) 1 puff INH BIDRT [facility] Last Admin: 06/13/19 11:28 Dose: 1 puff Sodium Chloride (Saline Flush) 10 ml FLUSH ASDIRECTED PRN PRN Reason: Keep Vein Open Discontinued Medications Albuterol/Ipratropium (Duoneb 3.0-0.5 Mg/3 Ml) 3 ml NEB ONETIME ONE Stop: 06/11/19 11:06 Last Admin: 06/11/19 11:09 Dose: 3 ml Furosemide (Lasix) 40 mg IVPUSH ONETIME ONE Stop: 06/11/19 12:50 Last Admin: 06/11/19 13:19 Dose: 40 mg Furosemide (Lasix) 40 mg IVPUSH NOW ONE Stop: 06/11/19 20:01 Last Admin: 06/11/19 19:44 Dose: 40 mg Furosemide (Lasix) 40 mg IVPUSH NOW ONE Stop: 06/12/19 08:51 Last Admin: 06/12/19 10:01 Dose: 40 mg Furosemide (Lasix) 40 mg IVPUSH NOW ONE Stop: 06/12/19 19:01 Last Admin: 06/12/19 18:39 Dose: 40 mg Furosemide (Lasix) 40 mg IVPUSH NOW ONE Stop: 06/13/19 14:01 Potassium Chloride (Klor-Con M20) 40 meq PO ONETIME ONE Stop: 06/12/19 09:01 Last Admin: 06/12/19 09:56 Dose: 40 meq Potassium Chloride (Klor-Con M20) 40 meq PO ONETIME ONE Stop: 06/12/19 17:01 Last Admin: 06/12/19 16:37 Dose: 40 meq Sodium Chloride (Saline Flush) 10 ml FLUSH ASDIRECTED PRN PRN Reason: Keep Vein Open Last Admin: 06/11/19 13:19 Dose: 10 ml - Exam Quality Assessment: Supplemental Oxygen, DVT Prophylaxis General: Alert, Oriented, Cooperative, Mild Distress Lungs: Clear to Auscultation, Decreased Breath Sounds. No: Rales, Rhonchi, Rub , Wheezing Cardiovascular: Regular Rate, Regular Rhythm, No Murmurs GI/Abdominal Exam: Soft, Non-Tender, No Organomegaly, No Distention Extremities: Non-Tender, Pedal Edema Sepsis Event Note - Evaluation Sepsis Screening Result: No Definite Risk - Focused Exam Vital Signs: Vital Signs Temp Pulse Pulse Resp BP BP Pulse Ox 06/13/19 10:44 97.6 F 53 L 16 118/72 94 L 06/13/19 08:20 78 132/67 06/13/19 07:33 97.4 F 62 16 132/67 92 L 06/13/19 04:52 99.7 F 61 20 142/84 H 96 Date Exam was Performed: 06/13/19 Time Exam was Performed: 14:06 - Problem List Review Problem List Initiated/Reviewed/Updated: Yes - My Orders Last 24 Hours: My Active Orders 06/13/19 16:30 GLUCOSE POC LAB TO COLLECT [POC] QIDACANDBED 06/13/19 20:00 Furosemide [Lasix] 40 mg IVPUSH Q12H 06/13/19 21:00 GLUCOSE POC LAB TO COLLECT [POC] QIDACANDBED 06/14/19 05:00 BASIC METABOLIC PANEL,BMP [CHEM] Timed 06/14/19 07:30 GLUCOSE POC LAB TO COLLECT [POC] QIDACANDBED 06/14/19 11:30 GLUCOSE POC LAB TO COLLECT [POC] QIDACANDBED 06/14/19 16:30 GLUCOSE POC LAB TO COLLECT [POC] QIDACANDBED 06/14/19 21:00 GLUCOSE POC LAB TO COLLECT [POC] QIDACANDBED 06/15/19 07:30 GLUCOSE POC LAB TO COLLECT [POC] QIDACANDBED 06/15/19 11:30 GLUCOSE POC LAB TO COLLECT [POC] QIDACANDBED 06/15/19 16:30 GLUCOSE POC LAB TO COLLECT [POC] QIDACANDBED 06/15/19 21:00 GLUCOSE POC LAB TO COLLECT [POC] QIDACANDBED 06/16/19 07:30 GLUCOSE POC LAB TO COLLECT [POC] QIDACANDBED 06/16/19 11:30 GLUCOSE POC LAB TO COLLECT [POC] QIDACANDBED - Plan Plan:: ASSESSMENT AND PLAN CONGESTIVE HEART FAILURE-with fluid overload. Significant shortness of breath with hypoxia and peripheral edema. Evidence of congestive heart failure noted on chest x-ray. Good diuresis thus far since admission with less shortness of breath and edema -2 g sodium diet -Furosemide 40 mg IV twice today, reassess in a.m. -Echocardiogram report pending HYPOXIA-I suspect a significant component of this is longstanding and is multifactorial; secondary to COPD, obesity related hypoventilation, and CHF -Will likely require supplemental oxygen at the time of discharge COPD-no evidence of acute exacerbation or underlying infection -Continue outpatient medical therapy -Duo nebs as needed TYPE 2 DIABETES MELLITUS-controlled with diet -4 times daily glucometers -Low-dose sliding scale NovoLog MAINTENANCE ISSUES -DVT prophylaxis; Lovenox 40 mg subcu daily -GI prophylaxis; continue outpatient H2 mallory therapy -Maciel catheter; not indicated -Nutrition; 2 g sodium diet -Nicotine dependence; not indicated CODE STATUS-FULL CODE ADMISSION STATUS-patient will be admitted to inpatient status, expect at least a 2 night hospital stay for evaluation and management of problems as outlined above. At the time of this admission I do not reasonably expected evaluation and management of this problem will require more than a 96 hour hospital stay. DISPOSITION-anticipate discharge to home after the hospital stay. PRIMARY CARE PROVIDER-Dr. Quintana
[2019-06-13] MEDS: Enoxaparin 40 MG/0.4 ML Syringe SUBCUT SCH (16:39)
[2019-06-13] MEDS: Furosemide 40 MG/4 ML VIAL IVPUSH SCH (20:35)
[2019-06-13] MEDS: Famotidine 20 MG Tab PO SCH (21:18)
[2019-06-14] MEDS: Acetaminophen 325 MG Tab PO PRN ×2 (03:29→12:08)
[2019-06-14] MEDS: Fluticasone-Salmeterol 113-14 MCG Powder Inhalant INH SCH (07:08)
[2019-06-14] MEDS: Insulin Lispro 100 Unit/ML 3 ML KwikPen SUBCUT SCH ×2 (07:56→12:54)
[2019-06-14] MEDS: Furosemide 40 MG/4 ML VIAL IVPUSH SCH (07:57)
[2019-06-14] MEDS: Doxazosin 4 MG Tab PO SCH (08:02)
[2019-06-14] MEDS: Aspirin 81 MG Tab.Chew PO SCH (08:02)
[2019-06-14] MEDS: Magnesium Oxide 400 MG Tab PO SCH (08:03)
[2019-06-14] MEDS: Potassium Chloride 10 MEQ Cap.ER PO SCH (08:03)
[2019-06-14] MEDS: Metoprolol Tartrate 50 MG Tab PO SCH (08:03)
[2019-06-14] MEDS ORDERED: Furosemide 40 MG/4 ML VIAL IVPUSH ONE (08:27)
--- NOTE | 2019-06-14 11:07 | PCM.DCSUM1 ---
Discharge Summary - Hospital Course Brief History: Mr. Buck is a 63-year-old gentleman who was admitted through the emergency department with hypoxia and increased peripheral edema secondary to diastolic congestive heart failure, COPD, cor pulmonale, and obesity related hypoventilation. - Discharge Data Discharge Date: 06/14/19 Discharge Disposition: Home, Self-Care 01 Condition: Fair - Referral to Home Health Primary Care Physician: Richie Quintana MD - Discharge Diagnosis/Problem(s) (1) Diastolic CHF SNOMED Code(s): 363278241, 551210667 ICD Code: I50.30 - UNSPECIFIED DIASTOLIC (CONGESTIVE) HEART FAILURE Status : Acute Current Visit: Yes (2) Hypoventilation associated with obesity SNOMED Code(s): 918554265 ICD Code: E66.2 - MORBID (SEVERE) OBESITY WITH ALVEOLAR HYPOVENTILATION Status: Acute Current Visit: Yes (3) COPD (chronic obstructive pulmonary disease) SNOMED Code(s): 68840363 ICD Code: J44.9 - CHRONIC OBSTRUCTIVE PULMONARY DISEASE, UNSPECIFIED Status : Acute Current Visit: Yes (4) Cor pulmonale (chronic) SNOMED Code(s): 26094062 ICD Code: I27.81 - COR PULMONALE (CHRONIC) Status: Acute Current Visit: Yes (5) Type 2 diabetes mellitus SNOMED Code(s): 91328768 ICD Code: E11.9 - TYPE 2 DIABETES MELLITUS WITHOUT COMPLICATIONS Status: Chronic Current Visit: No (6) Morbid obesity with BMI of 50.0-59.9, adult SNOMED Code(s): 319355421, 66459839773149 ICD Code: E66.01 - MORBID (SEVERE) OBESITY DUE TO EXCESS CALORIES; Z68.43 - BODY MASS INDEX (BMI) 50.0-59.9, ADULT Status: Chronic Current Visit: No (7) JANAE on CPAP SNOMED Code(s): 52945778 ICD Code: G47.33 - OBSTRUCTIVE SLEEP APNEA (ADULT) (PEDIATRIC); Z99.89 - DEPENDENCE ON OTHER ENABLING MACHINES AND DEVICES Status: Chronic Current Visit: No - Patient Summary/Data Hospital Course: Mr. Buck is a 63-year-old gentleman who was admitted through the emergency department with weakness, shortness of breath, and hypoxia, secondary to congestive heart failure. He does have a known history of underlying COPD but denies recent symptoms of exacerbation. He denies any previous history of congestive heart failure. He reports that his shortness of breath and peripheral edema have been developing slowly over the past several months but have become significantly worse in the past few weeks. He has been short of breath with minimal exertion, denies PND and orthopnea. Denies recent symptoms of chest pain or pressure. On admission he was continued on IV furosemide that was started in the emergency department and received 40 mg of furosemide twice daily throughout his hospitalization. He had a good diuresis with this and improvement but not total resolution of his peripheral edema. Echocardiogram was obtained and showed preserved left ventricular systolic function. There was evidence of right heart enlargement and elevation in right-sided pressures, consistent with cor pulmonale. There was no ongoing evidence of COPD exacerbation or underlying pulmonary infection. Oxygenation remained poor and he continued to require supplemental oxygen throughout his hospitalization despite diuresis. It was felt very likely that he has ongoing difficulty with obesity related hypoventilation in addition to his other medical problems. Glucose levels were monitored throughout hospitalization and he was treated with sliding scale Humalog as needed. He was documented to require home oxygen with an oxygen saturation of 72% at rest on room air, on June 13, 2019, 1 day prior to discharge. He will be discharged home on home oxygen 3-1/2 L/min via nasal cannula. He will be placed on furosemide 40 mg daily as an outpatient and will follow-up with Dr. Quintana within 1 week. BMP should be obtained at the time of follow-up appointment. Activity will be as tolerated and he will be on a 2 g sodium consistent carbohydrate diet. - Patient Instructions Diet: Low Sodium, Diabetic Diet Activity: As Tolerated Other/Special Instructions: Please schedule follow-up appointment with Dr. Quintana within 1 week. BMP should be obtained at the time of follow-up appointment. - Discharge Plan *PRESCRIPTION DRUG MONITORING PROGRAM REVIEWED*: Not Applicable *COPY OF PRESCRIPTION DRUG MONITORING REPORT IN PATIENT JACK: Not Applicable Prescriptions/Med Rec: Furosemide 40 mg PO DAILY #30 tablet Home Medications: Home Meds Aspirin [Aileen Chewable Aspirin] 81 mg PO DAILY 03/13/13 [History] Metoprolol Tartrate [Lopressor] 100 mg PO BID 03/13/13 [History] Potassium Gluconate 595 mg PO DAILY 03/13/13 [History] Budesonide/Formoterol [Symbicort 80-4.5 MCG] 2 puff IH BID 06/11/19 [History] Doxazosin [Cardura] 4 mg PO DAILY 06/11/19 [History] Magnesium 250 mg PO DAILY 06/11/19 [History] Ranitidine HCl [Ranitidine] 300 mg PO BEDTIME 06/11/19 [History] Furosemide 40 mg PO DAILY #30 tablet 06/14/19 [Rx] Oxygen Therapy Mode: Nasal Cannula Oxygen Flow Rate (L/min): 3.5 FiO2: 3.5 Maintain SpO2% greater than: 88 Patient Handouts: Heart Failure, [id number] Referrals: Richie Quintana MD [Primary Care Provider] - - Discharge Summary/Plan Comment DC Time >30 min.: No - Patient Data Vitals - Most Recent: Last Vital Signs Temp 98.8 F 06/14/19 07:00 Pulse 58 L 06/14/19 08:03 Resp 20 06/14/19 07:00 BP 131/69 06/14/19 08:03 Pulse Ox 91 L 06/14/19 07:00 Weight - Most Recent: 328 lb 11.2 oz I&O - Last 24 hours: Intake & Output 06/13/19 06/14/19 06/14/19 21:59 06:59 14:59 Intake Total 1280 Balance 1280 Lab Results - Last 24 hrs: Laboratory Results - last 24 hr 06/14/19 Range/Units 05:45 Sodium 145 (140-148) mmol/L Potassium 4.0 (3.6-5.2) mmol/L Chloride 101 (100-108) mmol/L Carbon Dioxide 40 H (21-32) mmol/L Anion Gap 8.0 (5.0-14.0) mmol/L BUN 20 H (7-18) mg/dL Creatinine 1.1 (0.8-1.3) mg/dL Est Cr Clr Drug Dosing 68.48 mL/min Estimated GFR (MDRD) > 60 (>60) Glucose 128 H (74-106) mg/dL Calcium 8.6 (8.5-10.1) mg/dL Med Orders - Current: Current Medications Acetaminophen (Tylenol) 650 mg PO Q4H PRN PRN Reason: Pain (Mild 1-3)/fever Last Admin: 06/14/19 03:29 Dose: 650 mg Aspirin (Aspirin) 81 mg PO DAILY [place] Last Admin: 06/14/19 08:02 Dose: 81 mg Dextrose (Glutose 15) 15 gm PO ONETIME PRN PRN Reason: Hypoglycemia Dextrose/Water (Dextrose 50% In Water) 50 ml IV ONETIME PRN PRN Reason: Hypoglycemia Doxazosin Mesylate (Cardura) 4 mg PO DAILY [facility] Last Admin: 06/14/19 08:02 Dose: 4 mg Enoxaparin Sodium (Lovenox) 40 mg SUBCUT Q24H [facility] Last Admin: 06/13/19 16:39 Dose: 40 mg Famotidine (Pepcid) 40 mg PO BEDTIME [facility] Last Admin: 06/13/19 21:18 Dose: 40 mg Furosemide (Lasix) 40 mg IVPUSH Q12H [facility] Last Admin: 06/14/19 07:57 Dose: 40 mg Insulin Human Lispro (Humalog) 0 unit SUBCUT QIDACANDBED [facility]; Protocol Last Admin: 06/14/19 07:56 Dose: Not Given Magnesium Oxide (Magnesium Oxide) 400 mg PO DAILY [facility] Last Admin: 06/14/19 08:03 Dose: 400 mg Metoprolol Tartrate (Lopressor) 100 mg PO BID [facility] Last Admin: 06/14/19 08:03 Dose: 100 mg Ondansetron HCl (Zofran) 4 mg IV Q4H PRN PRN Reason: Nausea/Vomiting Polyethylene Glycol (Miralax) 17 gm PO DAILY PRN PRN Reason: Constipation Potassium Chloride (Potassium Chloride) 10 meq PO DAILY [facility] Last Admin: 06/14/19 08:03 Dose: 10 meq Fluticasone/Salmeterol (Fluticasone-Salmeterol 113-14 Mcg Powder Inh) 1 puff INH BIDRT [facility] Last Admin: 06/14/19 07:08 Dose: 1 puff Sodium Chloride (Saline Flush) 10 ml FLUSH ASDIRECTED PRN PRN Reason: Keep Vein Open Discontinued Medications Albuterol/Ipratropium (Duoneb 3.0-0.5 Mg/3 Ml) 3 ml NEB ONETIME ONE Stop: 06/11/19 11:06 Last Admin: 06/11/19 11:09 Dose: 3 ml Furosemide (Lasix) 40 mg IVPUSH ONETIME ONE Stop: 06/11/19 12:50 Last Admin: 06/11/19 13:19 Dose: 40 mg Furosemide (Lasix) 40 mg IVPUSH NOW ONE Stop: 06/11/19 20:01 Last Admin: 06/11/19 19:44 Dose: 40 mg Furosemide (Lasix) 40 mg IVPUSH NOW ONE Stop: 06/12/19 08:51 Last Admin: 06/12/19 10:01 Dose: 40 mg Furosemide (Lasix) 40 mg IVPUSH NOW ONE Stop: 06/12/19 19:01 Last Admin: 06/12/19 18:39 Dose: 40 mg Furosemide (Lasix) 40 mg IVPUSH NOW ONE Stop: 06/13/19 14:01 Last Admin: 06/13/19 14:30 Dose: 40 mg Potassium Chloride (Klor-Con M20) 40 meq PO ONETIME ONE Stop: 06/12/19 09:01 Last Admin: 06/12/19 09:56 Dose: 40 meq Potassium Chloride (Klor-Con M20) 40 meq PO ONETIME ONE Stop: 06/12/19 17:01 Last Admin: 06/12/19 16:37 Dose: 40 meq Sodium Chloride (Saline Flush) 10 ml FLUSH ASDIRECTED PRN PRN Reason: Keep Vein Open Last Admin: 06/11/19 13:19 Dose: 10 ml - Exam General: Reports: Alert, Oriented, Cooperative, No Acute Distress Lungs: Reports: Normal Respiratory Effort, Decreased Breath Sounds. Denies: Rales, Rhonchi, Rub, Wheezing Cardiovascular: Reports: Regular Rate, Regular Rhythm, No Murmurs GI/Abdominal Exam: Soft, Non-Tender, No Organomegaly, No Distention Extremities: Non-Tender, Pedal Edema
== END 2019-06-14 13:43 | disposition home or self-care (01) | DRG 291 ==
LOC: JP.ED 10:20 → JP.MS 13:03
PROVIDERS: ADMIT Hospitalist; ATTEND Hospitalist
DX: I11.0 Hypertensive heart disease with heart failure (principal); I50.31 Acute diastolic (congestive) heart failure; Z68.43 Body mass index [BMI] 50.0-59.9, adult; E66.2 Morbid (severe) obesity with alveolar hypoventilation; H54.7 Unspecified visual loss; M54.9 Dorsalgia, unspecified; G89.29 Other chronic pain; E11.9 Type 2 diabetes mellitus without complications; J44.9 Chronic obstructive pulmonary disease, unspecified; R09.02 Hypoxemia; I27.81 Cor pulmonale (chronic); Z99.89 Dependence on other enabling machines and devices; Z79.82 Long term (current) use of aspirin; Z99.81 Dependence on supplemental oxygen; Z79.899 Other long term (current) drug therapy
CPT/HCPCS: 36415; 71046; 80048; 80053; 81001; 82962; 83605; 83735; 83880; 84484; 85025; 85027; 93005; 93306; 94640; 99284; 99285-25; A9270-GY; J1650; J1815; J1940; J7620-GY